=== PATIENT | female | born 1985 ===

== ENCOUNTER 2017-03-11 22:26 | Emergency (ER) | payer SELFPAY ==
[2017-03-11 22:52] VITALS: BP 122/74
--- NOTE | 2017-03-11 23:29 | ED PDOC ---
Arrival/HPI - General Chief Complaint: Finger,Hand,&Wrist Time Seen by Provider: 03/11/17 23:16 Historian: Patient - History of Present Illness Narrative History of Present Illness (Text): 03/11/17 23:17 31 y/o female, pmh including ovarian cyst/pylonephritis, nkda, c/o rt. hand palmar pain s/p slipped and landed on the palmar tonight while moving the furniture. Aching pain, aggravated by movement, no wrist pain, no numbness or tingling, no head or neck injury, no dizziness, no other medical or psychological complaints. Past Medical History - Provider Review Nursing Documentation Reviewed: Yes - Cardiac Hx Cardiac Disorders: No - Pulmonary Hx Respiratory Disorders: No - Neurological Hx Neurological Disorder: No - HEENT Hx HEENT Disorder: No - Renal Hx Renal Disorder: Yes Hx Kidney Stones: Yes - Endocrine/Metabolic Hx Endocrine Disorders: No - Hematological/Oncological Hx Blood Disorders: No - Integumentary Hx Dermatological Disorder: No - Musculoskeletal/Rheumatological Hx Musculoskeletal Disorders: No - Gastrointestinal Hx Gastrointestinal Disorders: No - Genitourinary/Gynecological Hx Genitourinary Disorders: Yes Hx Urinary Tract Infection: Yes Other/Comment: Ovarian cyst - Psychiatric Hx Psychophysiologic Disorder: No Hx Substance Use: No - Anesthesia Hx Anesthesia: No Family/Social History - Physician Review Nursing Documentation Reviewed: Yes Family/Social History: Unknown Family HX Smoking Status: Never Smoked Hx Alcohol Use: Yes Hx Substance Use: No Allergies/Home Meds Allergies/Adverse Reactions: Allergies tree nut Allergy (Verified 03/13/16 22:28) RASH fruit Allergy (Uncoded 03/13/16 22:28) RASH Home Medications: Home Meds Medication Instructions Recorded Confirmed Pnv No.95/Ferrous Fum/Folic AC 1 tab PO DAILY 10/22/16 10/22/16 [ Vitamin Tablet] Review of Systems - Physician Review All systems were reviewed & negative as marked: Yes - Review of Systems Constitutional: absent: Fatigue, Fevers Eyes: absent: Vision Changes ENT: absent: Hearing Changes Respiratory: absent: SOB, Cough Cardiovascular: absent: Chest Pain Gastrointestinal: absent: Abdominal Pain, Diarrhea, Nausea, Vomiting Musculoskeletal: Arthralgias, Myalgias. absent: Back Pain, Neck Pain, Joint Swelling Skin: absent: Rash, Pruritis, Skin Lesions Psychiatric: absent: Anxiety, Depression, Suicidal Ideation Physical Exam Vital Signs Reviewed: Yes Vital Signs Temp Pulse Resp BP Pulse Ox 03/12/17 00:55 98.0 F 90 16 99 03/12/17 00:54 98.0 F 90 16 03/11/17 22:47 98.1 F 66 18 122/74 98 Temperature: Afebrile Blood Pressure: Normal Pulse: Regular Respiratory Rate: Normal Appearance: Positive for: Well-Appearing, Non-Toxic, Comfortable Pain Distress: Mild Mental Status: Positive for: Alert and Oriented X 3 - Systems Exam Head: Present: Atraumatic, Normocephalic Pupils: Present: PERRL Extroacular Muscles: Present: EOMI Conjunctiva: Present: Normal Mouth: Present: Moist Mucous Membranes Neck: Present: Normal Range of Motion Respiratory/Chest: Present: Clear to Auscultation, Good Air Exchange. No: Respiratory Distress, Accessory Muscle Use Cardiovascular: Present: Regular Rate and Rhythm, Normal S1, S2. No: Murmurs Abdomen: Present: Normal Bowel Sounds. No: Tenderness, Distention, Peritoneal Signs Back: Present: Normal Inspection Upper Extremity: Present: Normal Inspection, Normal ROM, NORMAL PULSES, Neurovascularly Intact, Capillary Refill < 2s, Other (Rt. hand/wrist: +ttp on the base of the 2nd/3rd base metacarpal region with no swelling, no scaphoid or wrist tenderness, skin intact, FROM without limitation, sensation intact, motor 5/5, +radial pulse, capillary refill< 2 seconds, neurovascular intact. ). No: Cyanosis, Edema, Deformity Lower Extremity: Present: Normal Inspection. No: Edema Neurological: Present: GCS=15, Speech Normal, Motor Func Grossly Intact, Gait Normal, Memory Normal Skin: Present: Warm, Dry, Normal Color. No: Rashes Psychiatric: Present: Alert, Oriented x 3, Normal Insight, Normal Concentration Medical Decision Making ED Course and Treatment: 03/11/17 23:29 -rt. hand xray -motrin -observe and reassess 03/11/17 23:58 -xray show no obvious fracture or dislocation, radial gutter splint applied by me with neurovascular intact, sling applied. -Discharge home with motrin, radial gutter splint, follow up with your own pmd and orthopedic/hand specialist within 2 days, return to the ER for any new or worsening signs or symptoms. - RAD Interpretation Radiology Orders: 03/11/17 23:16 HAND RIGHT 3 VIEWS [RAD] Stat no fracture. 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 Disposition/Present on Arrival - Present on Arrival Any Indicators Present on Arrival: No History of DVT/PE: No History of Uncontrolled Diabetes: No Urinary Catheter: No History of Decub. Ulcer: No History Surgical Site Infection Following: None - Disposition Have Diagnosis and Disposition been Completed?: Yes Diagnosis: Hand injury, Hand pain Disposition: HOME/ ROUTINE Disposition Time: 23:29 Patient Plan: Discharge Condition: IMPROVED Additional Instructions: Discharge home with motrin, radial gutter splint, follow up with your own pmd and orthopedic/hand specialist within 2 days, return to the ER for any new or worsening signs or symptoms. Prescriptions: Ibuprofen [Motrin] 600 mg PO QID PRN #24 tab PRN Reason: Other Referrals: PCP,NO [Primary Care Provider] - Follow up with primary Leighton Griggs MD [Staff Provider] - Follow up with primary Chet Donnelly MD [Staff Provider] - Follow up with primary Forms: WORK NOTE
[2017-03-12 00:55] VITALS: PULSE 90; RESP 16; TEMP 98; O2SAT 99
--- NOTE | 2017-03-12 08:07 | RAD ---
PROCEDURE: Right Hand Radiographs. HISTORY: rt. hand 2nd/3rd base metacarpal pain COMPARISON: None. FINDINGS: BONES: No fracture. No erosions. JOINTS: The 2nd and 3rd proximal interphalangeal joints and 5th R at held in slight flexion. No gross erosions are prominent osteophytes here noted. And spaces are probably minimally decreased. At these levels there is soft tissue mild swelling suggested SOFT TISSUES: As above OTHER FINDINGS: None. IMPRESSION: Oft tissue swelling 2nd and 3rd and 5th proximal interphalangeal joint levels. Findings probably relating to mild degenerative changes no erosions are prominent osteophytes noted. If needed, consider rheumatologic lab testing correlation
== END 2017-03-12 00:55 | disposition home or self-care (01) ==
LOC: ED 22:26
DX: S69.91XA Unspecified injury of right wrist, hand and finger(s), initial encounter (principal); W01.0XXA Fall on same level from slipping, tripping and stumbling without subsequent striking against object, initial encounter; Y93.E9 Activity, other interior property and clothing maintenance; Y92.89 Other specified places as the place of occurrence of the external cause

== ENCOUNTER 2017-05-21 18:08 | Emergency (ER) | payer MEDICAID, OTHER ==
[2017-05-21 18:14] VITALS: BMI 27.3
[2017-05-21 18:28] VITALS: TEMP 98.1
--- NOTE | 2017-05-21 18:50 | ED PDOC ---
Arrival/HPI - General Chief Complaint: Abdominal Pain Time Seen by Provider: 05/21/17 18:34 Historian: Patient - History of Present Illness Narrative History of Present Illness (Text): 05/21/17 18:44 This 31 yo female presents to this ED c/o epigastric pain x 2 weeks. Patient stated she felt nauseous x 2 days ago. Today, patient continues with epigastric pain, but she does not feels nauseous. Denies sob, cp, urinary symptoms, calderon, fever, recent travel, sick contact, or abnormal gait. Patient appears well, in no acute distress. Patient has been texting while waiting in her ER room. Time/Duration: Other (see hpi) Context: Home Past Medical History - Provider Review Nursing Documentation Reviewed: Yes - Infectious Disease Hx of Infectious Diseases: None - Cardiac Hx Cardiac Disorders: No - Pulmonary Hx Respiratory Disorders: No - Neurological Hx Neurological Disorder: No - HEENT Hx HEENT Disorder: No - Renal Hx Renal Disorder: Yes Hx Kidney Stones: Yes - Endocrine/Metabolic Hx Endocrine Disorders: No - Hematological/Oncological Hx Blood Disorders: No - Integumentary Hx Dermatological Disorder: No - Musculoskeletal/Rheumatological Hx Musculoskeletal Disorders: No - Gastrointestinal Hx Gastrointestinal Disorders: No - Genitourinary/Gynecological Hx Genitourinary Disorders: Yes Hx Urinary Tract Infection: Yes Other/Comment: Ovarian cyst. 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 - Psychiatric Hx Psychophysiologic Disorder: No Hx Substance Use: No - Anesthesia Hx Anesthesia: No Family/Social History - Physician Review Nursing Documentation Reviewed: Yes Family/Social History: No Known Family HX Smoking Status: Light Smoker < 10 Cigarettes Daily Hx Alcohol Use: Yes Frequency of alcohol use: Socially Hx Substance Use: No Allergies/Home Meds Allergies/Adverse Reactions: Allergies tree nut Allergy (Verified 05/21/17 18:14) RASH fruit Allergy (Uncoded 05/21/17 18:14) RASH Home Medications: Home Meds Medication Instructions Recorded Confirmed Pnv No.95/Ferrous Fum/Folic AC 1 tab PO DAILY 10/22/16 05/21/17 [ Vitamin Tablet] Review of Systems - Review of Systems Constitutional: Normal. absent: Fatigue, Weight Change, Fevers, Night Sweats Eyes: Normal ENT: Normal Respiratory: Normal. absent: SOB, Cough, Wheezing Cardiovascular: Normal Gastrointestinal: Abdominal Pain, Nausea. absent: Constipation, Diarrhea, Vomiting Genitourinary Female: Normal. absent: Dysuria, Frequency, Hematuria, Vaginal Bleeding, Vaginal Discharge Musculoskeletal: Normal Skin: Normal Neurological: Normal. absent: Headache, Dizziness, Focal Weakness Endocrine: Normal Hemo/Lymphatic: Normal Psychiatric: Normal Physical Exam Vital Signs Temp Pulse Resp BP Pulse Ox 05/21/17 18:28 98.1 F 05/21/17 18:16 76 18 111/71 98 Temperature: Afebrile Blood Pressure: Normal Pulse: Regular Respiratory Rate: Normal Appearance: Positive for: Well-Appearing, Non-Toxic, Comfortable Pain Distress: None Mental Status: Positive for: Alert and Oriented X 3 - Systems Exam Head: Present: Atraumatic, Normocephalic Pupils: Present: PERRL Extroacular Muscles: Present: EOMI Conjunctiva: Present: Normal Mouth: Present: Moist Mucous Membranes Neck: Present: Normal Range of Motion Respiratory/Chest: Present: Clear to Auscultation, Good Air Exchange. No: Respiratory Distress, Accessory Muscle Use Cardiovascular: Present: Regular Rate and Rhythm, Normal S1, S2. No: Murmurs Abdomen: Present: Normal Bowel Sounds, Other (abdomen is soft, nt/nd). No: Tenderness, Distention, Peritoneal Signs, Rebound, Guarding, McBurney's Point Tender, Rovsing's Sign Present, Hernias Back: Present: Normal Inspection. No: CVA Tenderness Upper Extremity: Present: Normal Inspection, Normal ROM. No: Cyanosis, Edema Lower Extremity: Present: Normal Inspection, Normal ROM. No: Edema Neurological: Present: GCS=15, CN II-XII Intact, Speech Normal, Motor Func Grossly Intact, Normal Sensory Function, Normal Cerebellar Funct, Gait Normal Skin: Present: Warm, Dry, Normal Color. No: Rashes Psychiatric: Present: Alert, Oriented x 3, Normal Insight, Normal Concentration Medical Decision Making ED Course and Treatment: 05/21/17 19:56 Re-evaluation. Patient feels better. Discussed results and plan with patient who expresses understanding. All questions answered and there is agreement with the plan to discharge home with instructions. Patient stable for discharge. Return if symptoms persist or worsen. Abdomen is soft, nt/nd. Vital signs are stable. Labs unremarkable. Patient was recommended to f/u pmd in 1-2 days. Take medication as instructed. To return to emergency if symptoms worsen. Re-evaluation Time: 19:57 Reassessment Condition: Re-examined, Improved - Lab Interpretations Lab Results: 05/21/17 19:15 05/21/17 19:15 Lab Results 05/21/17 19:15: Sodium 139, Potassium 4.3, Chloride 104, Carbon Dioxide 24, Anion Gap 15, BUN 10, Creatinine 0.6, Est GFR ( Amer) > 60, Est GFR (Non- Af Amer) > 60, Random Glucose 74, Calcium 9.1, Total Bilirubin 0.5, AST 23, ALT 20, Alkaline Phosphatase 39, Total Protein 7.4, Albumin 4.3, Globulin 3.1, Albumin/Globulin Ratio 1.4, Lipase 110 05/21/17 19:15: WBC 9.4, RBC 4.36, Hgb 13.6, Hct 40.3, MCV 92.4, MCH 31.2, MCHC 33.7, RDW 12.3, Plt Count 430, MPV 9.2, Gran % 64.0, Lymph % (Auto) 28.4, Cherry % (Auto) 5.6, Eos % (Auto) 1.5, Baso % (Auto) 0.5, Gran # 6.00, Lymph # 2.7, Cherry # 0.5, Eos # 0.1, Baso # 0.05 05/21/17 19:02: Urine Color Yellow, Urine Appearance Clear, Urine pH 6.0, Ur Specific [place] 1.020, Urine Protein Negative, Urine Glucose (UA) Negative, Urine Ketones Negative, Urine Blood Trace-lysed H, Urine Nitrate Negative, Urine Bilirubin Negative, Urine Urobilinogen 0.2, Ur Leukocyte Esterase Negative , Urine RBC 0 - 2, Urine WBC 0 - 2, Ur Epithelial Cells 1 - 3, Urine Bacteria Few, Urine HCG, Qual Negative I have reviewed the lab results: Yes Interpretation: No clinic. lab abnormalty - Medication Orders Current Medication Orders: Discontinued Medications Sodium Chloride (Sodium Chloride 0.9%) 1,000 mls @ 999 mls/hr IV .Q1H1M STA Stop: 05/21/17 19:55 Last Admin: 05/21/17 19:21 Dose: 999 mls/hr Famotidine (Pepcid 20mg/50ml Premix) 20 mg in 50 mls @ 100 mls/hr IVPB STAT STA Stop: 05/21/17 19:25 Last Admin: 08/16/17 19:21 Dose: 100 mls/hr Ondansetron HCl (Zofran Inj) 4 mg IVP STAT STA Stop: 05/21/17 18:57 Last Admin: 05/21/17 19:21 Dose: Not Given Non-Admin Reason: Patient Refused Disposition/Present on Arrival - Present on Arrival Any Indicators Present on Arrival: No History of DVT/PE: No History of Uncontrolled Diabetes: No Urinary Catheter: No History of Decub. Ulcer: No History Surgical Site Infection Following: None - Disposition Have Diagnosis and Disposition been Completed?: Yes Diagnosis: Nonspecific abdominal pain Disposition: HOME/ ROUTINE Disposition Time: 19:58 Patient Plan: Discharge Patient Problems: Current Active Problems Problem Status Onset Nonspecific abdominal pain Acute Condition: GOOD Discharge Instructions (ExitCare): Abdominal Pain (ED) Additional Instructions: Call private doctor for follow up visit in 1-2 days. Take medication as instructed. Return to emergency if symptoms worsen. Prescriptions: Famotidine [Pepcid] 40 mg PO DAILY #20 tablet Sucralfate [Carafate] 1 gm PO DAILY #20 tab Referrals: Lauren Donohue, [Primary Care Provider] - Follow up with primary [facility] [Outside] - Follow up with primary [facility] [Outside] - Follow up with primary Forms: [employer] (Salvadorean)
[2017-05-21] MEDS ORDERED: Sodium Chloride 0.9% 1,000 ML IV STA (18:55)
[2017-05-21] MEDS ORDERED: Famotidine 20mg/50ml 20 MG/50 ML BAG IVPB STA (18:56)
[2017-05-21 19:38] LABS: BASO # 0.05 K/mm3 (0.0-2.0); BASO % 0.5 % (0.0-3.0); EOS # 0.1 (0.0-0.7); EOS % 1.5 % (1.5-5.0); HEMOGLOBIN 13.6 g/dL (12.0-16.0); LYMPH # 2.7 (1.2-3.4); LYMPH % 28.4 % (22.0-35.0); MEAN CELL VOLUME 92.4 fl (80.0-105.0); MEAN CORPUSCULAR HEMOGLOBIN 31.2 pg (25.0-35.0); MEAN CORPUSCULAR HGB CONC 33.7 g/dl (31.0-37.0); MEAN PLATELET VOLUME 9.2 fl (7.0-11.0); MONO # 0.5 (0.1-0.6); MONO % 5.6 % (1.0-6.0); PLATELET COUNT 430 10^3/uL (120.0-450.0); RBC 4.36 10^6/uL (3.5-6.1); RED CELL DISTRIBUTION WIDTH 12.3 % (11.5-14.5); WHITE BLOOD COUNT 9.4 10^3/ul (4.5-11.0)
[2017-05-21 19:42] LABS: URINE BILIRUBIN NEGATIVE (NEGATIVE); URINE BLOOD TRACE-LYSED (NEGATIVE); URINE GLUCOSE (UA) NEGATIVE (NEGATIVE); URINE LEUKOCYTE ESTERASE NEGATIVE Leu/uL (NEGATIVE); URINE NITRATE NEGATIVE (NEGATIVE); URINE PROTEIN NEGATIVE mg/dL (<30 mg/dL); URINE UROBILINOGEN 0.2 E.U./dL (<1 E.U./dL)
[2017-05-21 19:44] LABS: ALB/GLOB RATIO 1.4 (1.1-1.8); ALBUMIN 4.3 g/dL (3.0-4.8); ALT/SGPT 20 U/L (7-56); AST/SGOT 23 U/L (15-39); BLOOD UREA NITROGEN 10 mg/dL (7-21); CALCIUM 9.1 mg/dL (8.4-10.5); GFR AFRICAN-AMERICAN > 60; GFR NON-AFRICAN AMERICAN > 60; LIPASE 110 U/L (23-300)
[2017-05-21 19:47] LABS: URINE APPEARANCE CLEAR (CLEAR); URINE COLOR YELLOW (YELLOW)
[2017-05-21 19:51] LABS: HCG,QUALITATIVE URINE NEGATIVE (NEGATIVE); URINE BACTERIA FEW (NEG); URINE RBC 0 - 2 /hpf (0-2); URINE WBC 0 - 2 /hpf (0-6)
[2017-05-21] MEDS ORDERED: cefTRIAXone (Rocephin) 250 mg Inj IM STA (20:26)
[2017-05-21 21:23] VITALS: BP 114/87; PULSE 72; RESP 16; O2SAT 100
== END 2017-05-21 20:52 | disposition home or self-care (01) ==
LOC: ED 18:08
DX: R10.9 Unspecified abdominal pain (principal)
CPT/HCPCS: 80053; 81001; 83690; 84703; 85025; 87491; 87591; 96372; 99284; J0696; J7040

== ENCOUNTER 2017-09-24 18:52 | Emergency (ER) | payer MEDICAID, OTHER ==
[2017-09-24 18:52] VITALS: BMI 27.3
[2017-09-24 19:25] VITALS: BP 117/75; PULSE 102; RESP 17; TEMP 100; O2SAT 98
[2017-09-24] MEDS ORDERED: Sodium Chloride 0.9% 1,000 ML IV STA (19:34)
--- NOTE | 2017-09-24 20:05 | ED PDOC ---
Arrival/HPI - General Historian: Patient - General Chief Complaint: Flu-like Symptoms Time Seen by Provider: 09/24/17 19:34 - History of Present Illness Narrative History of Present Illness (Text): 09/24/17 20:00 31yo female with no Past medical history who present with 10days history of nausea, vomiting, diarrhea, productive cough, generalized body ache and weakness. Reports nonbloody vomiting x 3today and multiple episodes of diarrhea. Notes that she saw her PMD yesterday and was referred to lab christy for lab test. States she took Aleve yesterday. Denies sore throat, sick contact, urinary symptoms, chest pain, any other complaint. (Suresh Manzo A) Past Medical History - Provider Review Nursing Documentation Reviewed: Yes - Infectious Disease Hx of Infectious Diseases: None - Cardiac Hx Cardiac Disorders: No - Pulmonary Hx Respiratory Disorders: No - Neurological Hx Neurological Disorder: No - HEENT Hx HEENT Disorder: No - Renal Hx Renal Disorder: Yes Hx Kidney Stones: Yes - Endocrine/Metabolic Hx Endocrine Disorders: No - Hematological/Oncological Hx Blood Disorders: No - Integumentary Hx Dermatological Disorder: No - Musculoskeletal/Rheumatological Hx Musculoskeletal Disorders: No - Gastrointestinal Hx Gastrointestinal Disorders: No - Genitourinary/Gynecological Hx Genitourinary Disorders: Yes Hx Urinary Tract Infection: Yes Other/Comment: Ovarian cyst. 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 - Psychiatric Hx Psychophysiologic Disorder: No Hx Substance Use: No - Anesthesia Hx Anesthesia: No Family/Social History - Physician Review Nursing Documentation Reviewed: Yes Family/Social History: Unknown Family HX Smoking Status: Light Smoker < 10 Cigarettes Daily Hx Alcohol Use: Yes Hx Substance Use: No Allergies/Home Meds Allergies/Adverse Reactions: Allergies tree nut Allergy (Verified 09/24/17 19:19) RASH fruit Allergy (Uncoded 09/24/17 19:19) RASH Review of Systems - Physician Review All systems were reviewed & negative as marked: Yes - Review of Systems Constitutional: Fatigue, Fevers Eyes: Normal ENT: Normal Respiratory: Cough Cardiovascular: Normal Gastrointestinal: Abdominal Pain, Diarrhea, Nausea, Vomiting. absent: Constipation, Hematochezia, Hematemesis Genitourinary Female: Normal Musculoskeletal: Normal Skin: Normal Neurological: Normal Endocrine: Normal Hemo/Lymphatic: Normal Psychiatric: Normal Physical Exam Vital Signs Reviewed: Yes Temperature: Febrile Blood Pressure: Normal Pulse: Tachycardic Respiratory Rate: Normal Appearance: Positive for: Well-Appearing, Non-Toxic, Comfortable Pain Distress: None Mental Status: Positive for: Alert and Oriented X 3 - Systems Exam Head: Present: Atraumatic, Normocephalic Pupils: Present: PERRL Extroacular Muscles: Present: EOMI Conjunctiva: Present: Normal Mouth: Present: Moist Mucous Membranes Neck: Present: Normal Range of Motion Respiratory/Chest: Present: Clear to Auscultation, Good Air Exchange. No: Respiratory Distress, Accessory Muscle Use, Wheezes, Decreased Breath Sounds, Rales, Retracting, Rhonchi Cardiovascular: Present: Regular Rate and Rhythm, Normal S1, S2. No: Murmurs Abdomen: Present: Normal Bowel Sounds, Other (soft). No: Tenderness, Distention , Peritoneal Signs, Rebound, Guarding, McBurney's Point Tender, Rovsing's Sign Present Back: Present: Normal Inspection Upper Extremity: Present: Normal Inspection. No: Cyanosis, Edema Lower Extremity: Present: Normal Inspection. No: Edema Neurological: Present: GCS=15, CN II-XII Intact, Speech Normal Skin: Present: Warm, Dry, Normal Color. No: Rashes Psychiatric: Present: Alert, Oriented x 3, Normal Insight, Normal Concentration Vital Signs Temp Pulse Resp BP Pulse Ox 09/24/17 19:20 100.0 F H 102 H 17 117/75 98 Medical Decision Making ED Course and Treatment: 09/24/17 22:31 CT Abdomen and Pelvis shows: Lower thorax: Minimal atelectasis/scarring. Mild patchy groundglass/airspace disease left lower lobe. Minimal patchy groundglass/airspace disease right middle, lower lobes. ABDOMEN: Liver: Unremarkable. No mass. Gallbladder and bile ducts: No calcified stones. No ductal dilation. Pancreas: No ductal dilation. No mass. Spleen: No splenomegaly. Adrenals: No mass. Kidneys and ureters: No mass. No hydronephrosis. Stomach and bowel: Fluid within small bowel. Fluid/loose stool within colon. No definite mural thickening. No obstruction. Appendix: Normal caliber. No definite inflammation. PELVIS: Bladder: Unremarkable. Reproductive: 4.0 x 3.9 x 3.1 cm hypodense lesion within LEFT adnexal region. 0.8 x 1.1 x 1.5 cm fat containing lesion versus volume averaging within right adnexal region. ABDOMEN and PELVIS: Intraperitoneal space: No significant fluid collection. No free air. Bones/joints: No acute fracture. Soft tissues: Tiny umbilical hernia containing fat. Probable tiny ventral hernia containing fat. Vasculature: Mildly prominent vessels within left hemipelvis. No aneurysm. Lymph nodes: No pathologically enlarged lymph nodes. IMPRESSION: 1. Probable multifocal pneumonia. Followup to resolution to exclude underlying pathology. 2. Fluid/loose stool within bowel may suggest diarrhea illness. 3. Probable LEFT adnexal cyst. Consider ultrasound. 4. Small ovarian dermoid vs volume averaging. 5. Incidental/non-acute findings are described above. (Vimal Yip) 09/24/17 21:27 P present for stated history. She was febrile and Tylenol was given. Lab was reviewed and leukocytosis was noted. abdominal/Pelvic CT was ordered and pending chest xray ordered and pending. Case was DW Dr. Gibbs when she was in Emergency department and she wants pt admitted to the hospitalist if admission needed. Case was endorsed to Dr. Yip to f[facility] - Lab Interpretations Microbiology Results: Microbiology Results 09/24/17 21:10 Urine,Clean Catch Urine Culture - Final No Growth (<1,000 CFU/ML) Lab Results: 09/24/17 20:02 09/24/17 20:02 Lab Results 09/24/17 21:56: Urine Color Yellow, Urine Appearance Sl cloudy, Urine pH 7.0, Ur Specific [place] 1.010, Urine Protein Trace H, Urine Glucose (UA) Negative, Urine Ketones 15 H, Urine Blood Moderate H, Urine Nitrate Negative, Urine Bilirubin Negative, Urine Urobilinogen 0.2, Ur Leukocyte Esterase Negative, Urine RBC 10 - 15, Urine WBC 5 - 10, Ur Epithelial Cells 6 - 8, Urine Bacteria Many 09/24/17 20:02: Beta HCG, Quant < 2.39 09/24/17 20:02: Sodium 136, Potassium 3.2 L, Chloride 101, Carbon Dioxide 22, Anion Gap 16, BUN 5 L, Creatinine 0.7, Est GFR ( Amer) > 60, Est GFR (Non -Af Amer) > 60, Random Glucose 112 H, Calcium 9.2, Total Bilirubin 0.5, AST 36, ALT 38, Alkaline Phosphatase 70, Total Protein 8.9 H, Albumin 4.5, Globulin 4.5 , Albumin/Globulin Ratio 1.0 L, Lipase 59 09/24/17 20:02: PT 14.3 H, INR 1.30 H, APTT 32.0 09/24/17 20:02: WBC 17.2 H D, RBC 4.66, Hgb 14.5, Hct 42.2, MCV 90.6, MCH 31.1, MCHC 34.4, RDW 12.3, Plt Count 521 H, MPV 9.1, Gran % 86.7 H, Lymph % (Auto) 9.3 L, [place] % (Auto) 3.8, Eos % (Auto) 0.0 L, Baso % (Auto) 0.2, Gran # 14.91 H , Lymph # 1.6, Routt # 0.7 H, Eos # 0.0, Baso # 0.03 09/24/17 19:28: Influenza Typ A,B (EIA) Negative for flu a/b - RAD Interpretation Radiology Orders: 09/24/17 20:22 ABD & PELVIS IV CONTRAST ONLY [CT] Stat 09/24/17 20:43 CHEST TWO VIEWS (PA/LAT) [RAD] Stat - Medication Orders Current Medication Orders: Discontinued Medications Acetaminophen (Tylenol 325mg Tab) 650 mg PO STAT STA Stop: 09/24/17 20:00 Last Admin: 09/24/17 21:00 Dose: 650 mg MAR Pain/Vitals Document 09/24/17 21:00 AD (Rec: 09/24/17 21:00 [id number] Presence of Pain Presence of Pain Yes Location Intensity 10 Pain Behavior Moaning Crying Facial Grimacing Famotidine (Pepcid) 20 mg IVP STAT STA Stop: 09/24/17 19:35 Last Admin: 09/24/17 20:02 Dose: 20 mg IVP Administration Document 09/24/17 20:02 AD (Rec: 09/24/17 20:02 [id number] Charges for Administration # of IVP Administrations 1 Sodium Chloride (Sodium Chloride 0.9%) 1,000 mls @ 1,000 mls/hr IV .Q1H STA Stop: 09/24/17 20:33 Last Admin: 09/24/17 20:02 Dose: 1,000 mls/hr eMAR Start Stop Document 09/24/17 20:02 AD (Rec: 09/24/17 20:02 AD [id number]) Intravenous Solution Start Date 09/24/17 Start Time 20:02 Levofloxacin/Dextrose (Levaquin 750mg) 750 mg in 150 mls @ 100 mls/hr IVPB STAT STA PRN Reason: Protocol Stop: 09/25/17 00:49 Last Admin: 09/24/17 23:51 Dose: 100 mls/hr eMAR Start Stop Document 09/24/17 23:51 AD (Rec: 09/24/17 23:52 AD [id number]) Intravenous Solution Start Date 09/24/17 Start Time 23:52 Ibuprofen (Motrin Tab) 400 mg PO ONCE STA Stop: 09/25/17 00:08 Last Admin: 09/25/17 00:34 Dose: 400 mg MAR Pain/Vitals Document 09/25/17 00:34 AD (Rec: 09/25/17 00:34 AD [id number]) Pain Reassessment Is This A Pain ReAssessment? No Presence of Pain Presence of Pain Yes Pain Scale Used Pain Scale Used Numeric Location Pain Location Body Precipitate Washer Description Throbbing Intensity 8 Scale Used Numeric Pain Behavior Facial Grimacing Ketorolac Tromethamine (Toradol) 30 mg IVP STAT STA Stop: 09/24/17 19:35 Last Admin: 09/24/17 21:00 Dose: 30 mg MAR Pain Assessment Document 09/24/17 21:00 AD (Rec: 09/24/17 21:00 AD [id number]) Pain Reassessment Is this a pain reassessment? No Presence of Pain Presence of Pain Yes Pain Scale Used Pain Scale Used Numeric Description Intensity of Pain at present 10 IVP Administration Document 09/24/17 21:00 AD (Rec: 09/24/17 21:00 AD [id number]) Charges for Administration # of IVP Administrations 1 Ondansetron HCl (Zofran Inj) 4 mg IVP STAT STA Stop: 09/24/17 19:35 Last Admin: 09/24/17 20:02 Dose: 4 mg IVP Administration Document 09/24/17 20:02 AD (Rec: 09/24/17 20:02 AD [id number]) Charges for Administration # of IVP Administrations 1 Potassium Chloride (Potassium Chloride Oral Soln) 40 meq PO STAT STA Stop: 09/24/17 20:23 Last Admin: 09/24/17 21:00 Dose: 40 meq Disposition/Present on Arrival - Present on Arrival History of DVT/PE: No History of Uncontrolled Diabetes: No Urinary Catheter: No History of Decub. Ulcer: No History Surgical Site Infection Following: None - Disposition Disposition Time: 22:00 Patient Plan: Discharge - Disposition Diagnosis: Influenza-like symptoms, Pneumonia Disposition: HOME/ ROUTINE Condition: STABLE Discharge Instructions (ExitCare): Bacterial Pneumonia (ED) Prescriptions: levoFLOXacin [Levaquin] 500 mg PO DAILY #10 tab Ondansetron [Zofran Odt] 8 mg PO TID PRN #10 odt PRN Reason: Nausea/Vomiting Referrals: Leslee Abrams MD [Primary Care Provider] - Follow up with primary Forms: [employer] (Kyrgyz)
[2017-09-24 20:12] LABS: BASO # 0.03 K/mm3 (0.0-2.0); BASO % 0.2 % (0.0-3.0); GRAN # 14.91 (1.4-6.5); GRAN % 86.7 % (50.0-68.0); HEMATOCRIT 42.2 % (36.0-48.0); LYMPH # 1.6 (1.2-3.4); LYMPH % 9.3 % (22.0-35.0); MEAN CELL VOLUME 90.6 fl (80.0-105.0); MEAN CORPUSCULAR HEMOGLOBIN 31.1 pg (25.0-35.0); MEAN CORPUSCULAR HGB CONC 34.4 g/dl (31.0-37.0); MEAN PLATELET VOLUME 9.1 fl (7.0-11.0); MONO # 0.7 (0.1-0.6); MONO % 3.8 % (1.0-6.0); RED CELL DISTRIBUTION WIDTH 12.3 % (11.5-14.5); WHITE BLOOD COUNT 17.2 10^3/ul (4.5-11.0)
[2017-09-24 20:19] LABS: ALKALINE PHOSPHATASE 70 U/L (38-126); ALT/SGPT 38 U/L (7-56); AST/SGOT 36 U/L (14-36); BILIRUBIN,TOTAL 0.5 mg/dL (0.2-1.3); BLOOD UREA NITROGEN 5 mg/dL (7-21); CALCIUM 9.2 mg/dL (8.4-10.5); CARBON DIOXIDE 22 mmol/L (21-33); CHLORIDE 101 mmol/L (98-107); GFR AFRICAN-AMERICAN > 60; GLUCOSE,RANDOM 112 mg/dL (70-110); INR 1.3 (0.93-1.08); LIPASE 59 U/L (23-300); POTASSIUM 3.2 mmol/L (3.6-5.0); SODIUM 136 mmol/L (132-148); TOTAL PROTEIN 8.9 g/dL (5.8-8.3)
[2017-09-24] MEDS ORDERED: Potassium Chloride 40 mEq/30 ml LIQ UD PO STA (20:22)
[2017-09-24] MEDS ORDERED: Iohexol 350 MG/100 ML VIAL ONE (20:37)
[2017-09-24 22:10] LABS: URINE BILIRUBIN NEGATIVE (NEGATIVE); URINE BLOOD MODERATE (NEGATIVE); URINE GLUCOSE (UA) NEGATIVE (NEGATIVE); URINE KETONE 15 mg/dL (NEGATIVE); URINE LEUKOCYTE ESTERASE NEGATIVE Leu/uL (NEGATIVE); URINE PROTEIN TRACE mg/dL (<30 mg/dL); URINE UROBILINOGEN 0.2 E.U./dL (<1 E.U./dL)
[2017-09-24 22:21] LABS: URINE APPEARANCE SL CLOUDY (CLEAR); URINE COLOR YELLOW (YELLOW)
--- NOTE | 2017-09-24 22:31 | CT ---
EXAM: CT Abdomen and Pelvis With Intravenous Contrast CLINICAL HISTORY: 31 years old, female; Signs and symptoms; Vomiting; Additional info: Abdominal pain TECHNIQUE: Axial computed tomography images of the abdomen and pelvis with intravenous contrast. All CT scans at this facility use one or more dose reduction techniques, viz.: automated exposure control; ma/kV adjustment per patient size (including targeted exams where dose is matched to indication; i.e. head); or iterative reconstruction technique. Coronal and sagittal reformatted images were created and reviewed. CONTRAST: 95 mL of OMNI 350 administered intravenously. COMPARISON: No relevant prior studies available. FINDINGS: Lower thorax: Minimal atelectasis/scarring. Mild patchy groundglass/airspace disease left lower lobe. Minimal patchy groundglass/airspace disease right middle, lower lobes. ABDOMEN: Liver: Unremarkable. No mass. Gallbladder and bile ducts: No calcified stones. No ductal dilation. Pancreas: No ductal dilation. No mass. Spleen: No splenomegaly. Adrenals: No mass. Kidneys and ureters: No mass. No hydronephrosis. Stomach and bowel: Fluid within small bowel. Fluid/loose stool within colon. No definite mural thickening. No obstruction. Appendix: Normal caliber. No definite inflammation. PELVIS: Bladder: Unremarkable. Reproductive: 4.0 x 3.9 x 3.1 cm hypodense lesion within LEFT adnexal region. 0.8 x 1.1 x 1.5 cm fat containing lesion versus volume averaging within right adnexal region. ABDOMEN and PELVIS: Intraperitoneal space: No significant fluid collection. No free air. Bones/joints: No acute fracture. Soft tissues: Tiny umbilical hernia containing fat. Probable tiny ventral hernia containing fat. Vasculature: Mildly prominent vessels within left hemipelvis. No aneurysm. Lymph nodes: No pathologically enlarged lymph nodes. IMPRESSION: 1. Probable multifocal pneumonia. Followup to resolution to exclude underlying pathology. 2. Fluid/loose stool within bowel may suggest diarrhea illness. 3. Probable LEFT adnexal cyst. Consider ultrasound. 4. Small ovarian dermoid vs volume averaging. 5. Incidental/non-acute findings are described above.
[2017-09-24 22:34] LABS: URINE BACTERIA MANY (NEG)
[2017-09-24] MEDS ORDERED: levoFLOXacin 750 mg in D5W 750 MG/150 ML BAG IVPB STA (23:20)
--- NOTE | 2017-09-25 08:57 | RAD ---
HISTORY: cough COMPARISON: No prior. TECHNIQUE: Chest PA and lateral FINDINGS: LUNGS: The interstitial markings are increased and coarsened particularly in the mid to lower lung zones ; there are a few scattered peribronchial cuffing changes. Rule out sequela of reactive/inflammatory airway disease or interstitial pneumonitis -pneumonia. PLEURA: No significant pleural effusion identified. No pneumothorax apparent. CARDIOVASCULAR: Normal. OSSEOUS STRUCTURES: No significant abnormalities. VISUALIZED UPPER ABDOMEN: Normal. OTHER FINDINGS: None. IMPRESSION: The interstitial markings are increased and coarsened particularly in the mid to lower lung zones ; there are a few scattered peribronchial cuffing changes. Rule out sequela of reactive/inflammatory airway disease or interstitial pneumonitis -pneumonia.
== END 2017-09-25 01:12 | disposition home or self-care (01) ==
LOC: ED 18:52
DX: J18.9 Pneumonia, unspecified organism (principal); J11.1 Influenza due to unidentified influenza virus with other respiratory manifestations; F17.210 Nicotine dependence, cigarettes, uncomplicated
CPT/HCPCS: 71020; 74177; 80053; 81001; 83690; 84702; 85025; 85610; 85730; 87086; 87804; 96374; 96375; 99284; J1885; J2405; J3480; J7040; Q9967

== ENCOUNTER 2017-09-29 01:04 | Observation (INO) | payer OTHER ==
--- NOTE | 2017-09-29 01:23 | ED PDOC ---
Arrival/HPI - General Chief Complaint: Weakness/Neurological Deficit Time Seen by Provider: 09/29/17 01:08 Historian: Patient, Family - History of Present Illness Narrative History of Present Illness (Text): 09/29/17 01:22 31 year old female, who denies any past medical history, presents complaining of worsening cough and chest pain associated with vomiting and generalized weakness. Patient was recently seen and diagnosed for pneumonia, but refused to stay. Patient is currently taking Levaquin with no relief. Patient reports body aches and fever, but denies any chills, shortness of breath, diarrhea, urinary symptoms, back pain, neck pain, headache, dizziness, or any other complaints. PMD: Dr. Abrams Symptom Onset: Gradual Symptom Course: Worsening Activities at Onset: Light Context: Home Past Medical History - Provider Review Nursing Documentation Reviewed: Yes - Infectious Disease Hx of Infectious Diseases: None - Cardiac Hx Cardiac Disorders: No - Pulmonary Hx Respiratory Disorders: No - Neurological Hx Neurological Disorder: No - HEENT Hx HEENT Disorder: No - Renal Hx Renal Disorder: Yes Hx Kidney Stones: Yes - Endocrine/Metabolic Hx Endocrine Disorders: No - Hematological/Oncological Hx Blood Disorders: No - Integumentary Hx Dermatological Disorder: No - Musculoskeletal/Rheumatological Hx Musculoskeletal Disorders: No - Gastrointestinal Hx Gastrointestinal Disorders: No - Genitourinary/Gynecological Hx Genitourinary Disorders: Yes Hx Urinary Tract Infection: Yes Other/Comment: Ovarian cyst. 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 absent: Other (Chills) Respiratory: Cough. absent: SOB Cardiovascular: Chest Pain Gastrointestinal: Vomiting. absent: Diarrhea Genitourinary Female: absent: Dysuria, Frequency, Hematuria Musculoskeletal: Other (body aches) Neurological: absent: Headache, Dizziness Physical Exam Vital Signs Reviewed: Yes Vital Signs Temp Pulse Resp BP Pulse Ox 09/29/17 01:19 98.4 F 60 20 112/77 100 Temperature: Afebrile Blood Pressure: Normal Pulse: Regular Respiratory Rate: Normal Appearance: Positive for: Well-Appearing, Non-Toxic, Comfortable Pain Distress: None Mental Status: Positive for: Alert and Oriented X 3 - Systems Exam Head: Present: Atraumatic, Normocephalic Pupils: Present: PERRL Extroacular Muscles: Present: EOMI Conjunctiva: Present: Normal Mouth: Present: Moist Mucous Membranes Neck: Present: Normal Range of Motion Respiratory/Chest: Present: Rhonchi (Mild Rhonchi bilaterally ) Cardiovascular: Present: Regular Rate and Rhythm, Normal S1, S2. No: Murmurs Abdomen: Present: Normal Bowel Sounds. No: Tenderness, Distention, Peritoneal Signs Back: Present: Normal Inspection Upper Extremity: Present: Normal Inspection. No: Cyanosis, Edema Lower Extremity: Present: Normal Inspection. No: Edema Neurological: Present: GCS=15, CN II-XII Intact, Speech Normal Skin: Present: Warm, Dry, Normal Color. No: Rashes Psychiatric: Present: Alert, Oriented x 3, Normal Insight, Normal Concentration Medical Decision Making ED Course and Treatment: 09/29/17 01:22 Impression: 31 year old female who presents with worsening cough and chest pain associated with generalized weakness and vomiting. Patient was recently diagnosed for pneumonia. Plan: -- VBG Shock Panel -- Labs -- Chest X-ray -- HCG, Qualt Urine -- Urinalysis -- Reassess and disposition Prior Visits: Notes and results from previous visits were reviewed. Patient was last seen in the emergency department on 09/24/17 for nausea, vomiting, diarrhea, productive cough, generalized body ache and weakness for that past 10 days. Progress Notes: 09/29/17 03:08 CXR Impression: As read by ABBE villaseñor. Plan: -- Chest CT -- Toradol -- K-Dur 20 -- Influenza A B Stat 09/29/17 04:59 EXAM: CT Chest Without Intravenous Contrast Dictated and Authenticated by: Vaishali Lynn MD 09/29/2017 4:57 AM IMPRESSION: 1. There is a reticular-nodular infiltrate in the superior segment of left lower lobe and in the left posterior perihilar region seen on image 27 series 2 through image 34 series 2 representing acute pneumonia or aspiration pneumonia. 2. Minimal infiltration in the right lower lobe and subsegmental consolidation in the lateral right middle lobe. Multifocal pneumonia or atelectasis is not excluded. 09/29/17 05:[address] Saeed who is aware and agrees with the plan. Patient will be admitted to [facility] for Pneumonia. - Lab Interpretations Lab Results: 09/29/17 01:40 09/29/17 01:40 Lab Results 09/29/17 03:15: Influenza Typ A,B (EIA) Negative for flu a/b 09/29/17 02:23: Urine HCG, Qual Negative 09/29/17 02:23: Urine Color Yellow, Urine Appearance Sl cloudy, Urine pH 7.0, Ur Specific [place] <= 1.005, Urine Protein Negative, Urine Glucose (UA) Negative, Urine Ketones Negative, Urine Blood Moderate H, Urine Nitrate Negative , Urine Bilirubin Negative, Urine Urobilinogen 0.2, Ur Leukocyte Esterase Negative, Urine RBC 1 - 3, Urine WBC 0 - 2, Ur Epithelial Cells 3 - 4, Urine Bacteria Few 09/29/17 01:40: Beta HCG, Quant < 2.39 09/29/17 01:40: Sodium 137, Chloride 101, Potassium 3.3 L, Carbon Dioxide 24, Anion Gap 16, BUN 9, Creatinine 0.6 L, Est GFR ( Amer) > 60, Est GFR (Non -Af Amer) > 60, Random Glucose 86, Calcium 9.0, Total Bilirubin 0.5, AST 35, ALT 27, Alkaline Phosphatase 57, Total Protein 7.9, Albumin 4.1, Globulin 3.8, Albumin/Globulin Ratio 1.1 09/29/17 01:40: PT 15.3 H, INR 1.39 H, APTT 32.8 09/29/17 01:40: WBC 10.5 D, RBC 4.73, Hgb 14.7, Hct 42.6, MCV 90.1, MCH 31.1, MCHC 34.5, RDW 12.2, Plt Count 598 H, MPV 9.2, Gran % 65.4, Lymph % (Auto) 24.5 , [place] % (Auto) 9.0 H, Eos % (Auto) 0.5 L, Baso % (Auto) 0.6, Gran # 6.85 H, Lymph # 2.6, [place] # 0.9 H, Eos # 0.1, Baso # 0.06 09/29/17 01:40: pO2 53, VBG pH 7.40, VBG pCO2 41.0, VBG HCO3 25.4, VBG Total CO2 26.7, VBG O2 Sat (Calc) 91.9 H, VBG Base Excess 0.5, VBG Potassium 3.5 L, Sodium 135.0, Chloride 101.0, Glucose 83, Lactate 1.0, FiO2 21.0, Venous Blood Potassium 3.5 L I have reviewed the lab results: Yes - RAD Interpretation Radiology Orders: 09/29/17 01:23 CHEST PORTABLE [RAD] Stat 09/29/17 03:02 CHEST W/O CONTRAST [CT] Stat - Medication Orders Current Medication Orders: Discontinued Medications Acetaminophen (Tylenol 325mg Tab) 650 mg PO Q6H PRN PRN Reason: Fever >100.4 F Acetaminophen (Tylenol 325mg Tab) 650 mg PO Q4H PRN PRN Reason: Fever >100.4 F Albuterol/Ipratropium (Duoneb 3 Mg/0.5 Mg (3 Ml) Ud) 3 ml IH [id number] AZALEA Enoxaparin Sodium (Lovenox) 30 mg SC DAILY AZALEA PRN Reason: Protocol Last Admin: 09/29/17 10:06 Dose: 30 mg Subcutaneous Administrations Document 09/29/17 10:06 DSZ (Rec: 09/29/17 10:[address] [id number] Injection Site MAR Injection Site Left Abdomen Charges for Administration # of Subcutaneous Administrations 1 Famotidine (Pepcid) 40 mg PO HS AZALEA Ceftriaxone Sodium (Rocephin 2 Gm Ivpb) 2 gm in 100 mls @ 100 mls/hr IVPB STAT STA PRN Reason: Protocol Stop: 09/29/17 05:57 Last Admin: 09/29/17 05:43 Dose: 100 mls/hr eMAR Start Stop Document 09/29/17 05:43 SS (Rec: 09/29/17 05:44 SS [id number]) Intravenous Solution Start Date 09/29/17 Start Time 05:43 End Date 09/29/17 End time 06:43 Total Infusion Time 60 Azithromycin (Zithromax 500mg In Ns) 500 mg in 250 mls @ 167 mls/hr IVPB STAT STA PRN Reason: Protocol Stop: 09/29/17 06:27 Last Admin: 09/29/17 06:42 Dose: 167 mls/hr eMAR Start Stop Document 09/29/17 06:42 BR (Rec: 09/29/17 06:42 BR [id number]) Intravenous Solution Start Date 09/29/17 Start Time 06:42 End Date 09/29/17 End time 08:12 Total Infusion Time 90 Metronidazole (Flagyl) 500 mg in 100 mls @ 100 mls/hr IVPB STAT STA PRN Reason: Protocol Stop: 09/29/17 05:58 Last Admin: 09/29/17 10:36 Dose: 100 mls/hr eMAR Start Stop Document 09/29/17 10:36 DSZ (Rec: 09/29/17 10:[address] [facility] [id number] Intravenous Solution Start Date 09/29/17 Start Time 10:36 Azithromycin (Zithromax 500mg In Ns) 500 mg in 250 mls @ 167 mls/hr IVPB DAILY AZALEA PRN Reason: Protocol Ceftriaxone Sodium (Rocephin 2 Gm Ivpb) 2 gm in 100 mls @ 100 mls/hr IVPB 2200 AZALEA PRN Reason: Protocol Sodium Chloride (Sodium Chloride 0.9%) 1,000 mls @ 100 mls/hr IV .Q10H AZALEA Stop: 09/30/17 01:59 Azithromycin (Zithromax 500mg In Ns) 500 mg in 250 mls @ 167 mls/hr IVPB DAILY AZALEA PRN Reason: Protocol Piperacillin Sod/Tazobactam Sod (Zosyn 3.375 In Ns 100ml) 100 mls @ 200 mls/hr IVPB Q6 AZALEA PRN Reason: Protocol Stop: 10/08/17 12:01 Last Admin: 09/29/17 17:13 Dose: 200 mls/hr eMAR Start Stop Document 09/29/17 17:13 DSZ (Rec: 09/29/17 17:[address] [facility] [id number] Intravenous Solution Start Date 09/29/17 Start Time 17:13 Ketorolac Tromethamine (Toradol) 30 mg IVP STAT STA Stop: 09/29/17 03:03 Last Admin: 09/29/17 03:26 Dose: 30 mg MAR Pain Assessment Document 09/29/17 03:26 SS (Rec: 09/29/17 03:27 SS [id number]) Pain Reassessment Is this a pain reassessment? No Sleep Is patient sleeping during reassessment? No Presence of Pain Presence of Pain Yes IVP Administration Document 09/29/17 03:26 SS (Rec: 09/29/17 03:27 SS [id number]) Charges for Administration # of IVP Administrations 1 Ketorolac Tromethamine (Toradol) 15 mg IVP Q4H PRN PRN Reason: Pain, moderate (4-7) Ondansetron HCl (Zofran Inj) 4 mg IVP Q4H PRN PRN Reason: Nausea/Vomiting Potassium Chloride (K-Dur 20 Meq Er Tab) 40 meq PO STAT STA Stop: 09/29/17 02:57 Last Admin: 09/29/17 03:12 Dose: 40 meq - Scribe Statement The provider has reviewed the documentation as recorded by the Pascual Tai Provider Scribe Attestation: All medical record entries made by the Pascual were at my direction and personally dictated by me. I have reviewed the chart and agree that the record accurately reflects my personal performance of the history, physical exam, medical decision making, and the department course for this patient. I have also personally directed, reviewed, and agree with the discharge instructions and disposition. Disposition/Present on Arrival - Present on Arrival Any Indicators Present on Arrival: No History of DVT/PE: No History of Uncontrolled Diabetes: No Urinary Catheter: No History of Decub. Ulcer: No History Surgical Site Infection Following: None - Disposition Have Diagnosis and Disposition been Completed?: Yes Diagnosis: Pneumonia Disposition: HOSPITALIZED Disposition Time: 07:00 Condition: STABLE
[2017-09-29 02:15] LABS: BASO # 0.06 K/mm3 (0.0-2.0); BASO % 0.6 % (0.0-3.0); EOS # 0.1 (0.0-0.7); EOS % 0.5 % (1.5-5.0); GRAN # 6.85 (1.4-6.5); GRAN % 65.4 % (50.0-68.0); HEMOGLOBIN 14.7 g/dL (12.0-16.0); LYMPH # 2.6 (1.2-3.4); LYMPH % 24.5 % (22.0-35.0); MEAN CELL VOLUME 90.1 fl (80.0-105.0); MEAN CORPUSCULAR HEMOGLOBIN 31.1 pg (25.0-35.0); MEAN CORPUSCULAR HGB CONC 34.5 g/dl (31.0-37.0); MEAN PLATELET VOLUME 9.2 fl (7.0-11.0); MONO # 0.9 (0.1-0.6); RBC 4.73 10^6/uL (3.5-6.1); RED CELL DISTRIBUTION WIDTH 12.2 % (11.5-14.5); WHITE BLOOD COUNT 10.5 10^3/ul (4.5-11.0)
[2017-09-29 02:23] LABS: INR 1.39 (0.93-1.08); PARTIAL THROMBOPLASTIN TIME 32.8 Seconds (25.1-36.5); PROTHROMBIN TIME 15.3 SECONDS (9.4-12.5)
[2017-09-29 02:34] LABS: URINE BILIRUBIN NEGATIVE (NEGATIVE); URINE BLOOD MODERATE (NEGATIVE); URINE GLUCOSE (UA) NEGATIVE (NEGATIVE); URINE LEUKOCYTE ESTERASE NEGATIVE Leu/uL (NEGATIVE); URINE NITRATE NEGATIVE (NEGATIVE); URINE PROTEIN NEGATIVE mg/dL (<30 mg/dL); URINE UROBILINOGEN 0.2 E.U./dL (<1 E.U./dL)
[2017-09-29 02:36] LABS: URINE APPEARANCE SL CLOUDY (CLEAR); URINE COLOR YELLOW (YELLOW)
[2017-09-29 02:38] LABS: VENOUS BLOOD GAS BASE EXCESS 0.5 mmol/L (0.0-2.0); VENOUS BLOOD GAS PO2 53 mm/Hg (30-55)
[2017-09-29 02:42] LABS: ALB/GLOB RATIO 1.1 (1.1-1.8); ALBUMIN 4.1 g/dL (3.0-4.8); ALT/SGPT 27 U/L (7-56); AST/SGOT 35 U/L (14-36); BLOOD UREA NITROGEN 9 mg/dL (7-21); GFR AFRICAN-AMERICAN > 60; GFR NON-AFRICAN AMERICAN > 60
[2017-09-29] MEDS ORDERED: Potassium Chloride 20 mEq ER Tab PO STA (02:56)
[2017-09-29 03:21] LABS: URINE BACTERIA FEW (NEG); URINE WBC 0 - 2 /hpf (0-6)
--- NOTE | 2017-09-29 04:57 | CT ---
EXAM: CT Chest Without Intravenous Contrast CLINICAL HISTORY: 31 years old, female; Signs and symptoms; Cough; Symptoms not specified; Additional info: Cough h/o of pneumonia TECHNIQUE: Axial computed tomography images of the chest without intravenous contrast. All CT scans at this facility use one or more dose reduction techniques, viz.: automated exposure control; ma/kV adjustment per patient size (including targeted exams where dose is matched to indication; i.e. head); or iterative reconstruction technique. 542 images are submitted. Coronal and sagittal reformatted images were created and reviewed. COMPARISON: No relevant prior studies available. FINDINGS: Artifacts: Limited due to motion and misregistration artifacts. Lungs: There is a reticular-nodular infiltrate in the superior segment of left lower lobe and in the left posterior perihilar region seen on image 27 series 2 through image 34 series 2 representing acute pneumonia or aspiration pneumonia. Minimal infiltration in the right lower lobe and subsegmental consolidation in the lateral right middle lobe. Multifocal pneumonia or atelectasis is not excluded. Pleural space: Unremarkable. No pneumothorax. No significant effusion. Heart: Unremarkable. No cardiomegaly. No significant pericardial effusion. Mediastinum: Possible small hiatal hernia. Bones/joints: Unremarkable. No acute fracture. No dislocation. Soft tissues: Unremarkable. Vasculature: Unremarkable. No thoracic aortic aneurysm. Lymph nodes: Subcentimeter axillary lymph nodes. Stomach and bowel: There is hyperdensity within the stomach could represent ingested contents. Normal adrenal glands. IMPRESSION: 1. There is a reticular-nodular infiltrate in the superior segment of left lower lobe and in the left posterior perihilar region seen on image 27 series 2 through image 34 series 2 representing acute pneumonia or aspiration pneumonia. 2. Minimal infiltration in the right lower lobe and subsegmental consolidation in the lateral right middle lobe. Multifocal pneumonia or atelectasis is not excluded. Correlation with internal medicine evaluation and further workup or followup as recommended by patient's clinical data.
[2017-09-29] MEDS ORDERED: Azithromycin 500MG/NS 250ml 500 MG/250 ML BAG IVPB STA (04:58)
[2017-09-29] MEDS ORDERED: cefTRIAXone 2 GM IN NS 2 GM/100 ML BAG IVPB STA (04:58)
[2017-09-29] MEDS ORDERED: metroNIDAZOLE IV 500 mg/100 ml 500 MG/100 ML BAG IVPB STA (04:59)
[2017-09-29] MEDS ORDERED: Sodium Chloride 0.9% 1,000 ML IV SCH (06:00)
--- NOTE | 2017-09-29 06:01 | CP.PCM.HP ---
<Fannie Ruff - Last Filed: 09/29/17 07:07> History of Present Illness - History of Present Illness History of Present Illness: 31 year female with no significant past medical history who presents with sore throat, body aches, decreased appetite, and lethargy. On 09/24/17 she presented to the ED for fever, chills, vomiting and was found to have leukocytosis along with chest X-raydemonstrating an interstitial process. At the time, the patient refused admission and was sent home on Levaquin and an antiemetic. Since that time the patient's fever and chills had resolved, but now she presents with body aches, failure to thrive, fatigue, lethargy, malaise, and sore throat. PMD: Dr. Gibbs (per chart review) PSH: Denies PMH: Denies Allergies: Tree, fruit, and lactose intolerant Social: has two kids, 10 pack year history of smoking, drinks occasionally. Present on Admission - Present on Admission Any Indicators Present on Admission: No Review of Systems - Constitutional Constitutional: As Per HPI Past Patient History - Infectious Disease Hx of Infectious Diseases: None - Past Social History Smoking Status: Light Smoker < 10 Cigarettes Daily - CARDIAC Hx Cardiac Disorders: No - PULMONARY Hx Respiratory Disorders: No - NEUROLOGICAL Hx Neurological Disorder: No - HEENT Hx HEENT Problems: No - RENAL Hx Chronic Kidney Disease: Yes Hx Kidney Stones: Yes - ENDOCRINE/METABOLIC Hx Endocrine Disorders: No - HEMATOLOGICAL/ONCOLOGICAL Hx Blood Disorders: No - INTEGUMENTARY Hx Dermatological Problems: No - MUSCULOSKELETAL/RHEUMATOLOGICAL Hx Musculoskeletal Disorders: No - GASTROINTESTINAL Hx Gastrointestinal Disorders: No - GENITOURINARY/GYNECOLOGICAL Hx Genitourinary Disorders: Yes Hx Urinary Tract Infection: Yes Other/Comment: Ovarian cyst. 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 - PSYCHIATRIC Hx Psychophysiologic Disorder: No Hx Substance Use: No - SURGICAL HISTORY Hx Surgeries: No - ANESTHESIA Hx Anesthesia: No Meds Home Medications: Home Medication List Medication Instructions Recorded Confirmed Type levoFLOXacin [Levaquin] 500 mg PO DAILY #4 tab 09/29/17 Rx Allergies/Adverse Reactions: Allergies Allergy/AdvReac Type Severity Reaction Status Date / Time tree nut Allergy RASH Verified 09/24/17 19:19 fruit Allergy RASH Uncoded 09/24/17 19:19 Physical Exam - Constitutional Appears: Non-toxic, No Acute Distress Additional comments: tired, fatigued - Head Exam Head Exam: ATRAUMATIC, NORMOCEPHALIC - Eye Exam Eye Exam: EOMI, Normal appearance Pupil Exam: PERRL - ENT Exam Additional comments: posterior pharynx is erythematous, right upper lip demonstrates a cold sore, and right internal nare has an impetigo-appearing lesion Patient reportts pain with EOMovemnt in eyes. - Neck Exam Neck exam: Negative for: Tenderness Additional comments: right sternoclavicular lesion demostrates papular-uritcarial rash - Respiratory Exam Additional comments: left sided rub/rhonchi./abnormal in mid lung field - Cardiovascular Exam Cardiovascular Exam: RRR, +S1, +S2 - GI/Abdominal Exam GI & Abdominal Exam: Normal Bowel Sounds, Soft - Extremities Exam Extremities exam: Negative for: calf tenderness - Back Exam Back exam: NORMAL INSPECTION. absent: CVA tenderness (L), CVA tenderness (R) - Neurological Exam Neurological exam: CN II-XII Intact, Oriented x3 - Psychiatric Exam Psychiatric exam: Normal Affect, Normal Mood - Skin Skin Exam: Dry, Intact, Normal Color, Warm Results - Vital Signs Recent Vital Signs: Last Vital Signs Temp 98.4 F 09/29/17 01:19 Pulse 60 09/29/17 01:19 Resp 20 09/29/17 01:19 BP 112/77 09/29/17 01:19 Pulse Ox 100 09/29/17 01:19 - Labs Result Diagrams: 09/29/17 01:40 09/29/17 01:40 Assessment & Plan - Assessment and Plan (Free Text) Assessment: 31 year old female presenting with increased lethargy, malaise, sore thorat after failing outpatient therapy for pneumonia. Plan: 1) Pneumonia with concurrent URI - CT chest reads as there is a reticular-nodular infiltrate in the superior segment of left lower lobe and in the left posterior perihilar region seen on image 27 series 2 through image 34 series 2 representing acute pneumonia or aspiration pneumonia. Minimal infiltration in the right lower lobe and subsegmental consolidation in the lateral right middle lobe. Multifocal pneumonia or atelectasis is not excluded. Correlation with internal medicine evaluation and further workup or followup as recommended by patient's clinical data - Follow up: Urine legionella and Strep pneumo antigen, ASO titer, blood, sputum cultures, rapid strep test and Mycoplasma IgM and IgG - ID, Dr. Bull, consulted. - Duonebs q4h AZALEA - Soft diet - Tylenol or IVP Toradol for pain - Zofran 4 mg q4h PRN for nausea - 100 ml/hr of NS - Chest X-ray interprtation pending 2) DVT/GI prophylaxis - Lovenox 30 SC - Famotidine 40 mg HS - Date & Time Date: 09/29/17 Time: 07:05 <Aguilar Espinosa - Last Filed: 10/03/17 06:25> Results - Vital Signs Recent Vital Signs: Last Vital Signs Temp 98.9 F 09/29/17 16:33 Pulse 64 09/29/17 16:33 Resp 16 09/29/17 16:33 BP 106/66 09/29/17 16:33 Pulse Ox 98 09/29/17 16:33 - Labs Result Diagrams: 09/29/17 01:40 09/29/17 08:00 Labs: Laboratory Results - last 24 hr 09/29/17 06:15 Mycoplasma pneumon IgG >5.00 H Mycoplasma pneumon IgM 6087 H
[2017-09-29] MEDS ORDERED: Albuterol-Ipratrop 3 mg / 0.5 (3 ml) UD IH SCH (07:30)
[2017-09-29 08:35] LABS: BLOOD UREA NITROGEN 9 mg/dL (7-21); CALCIUM 9.2 mg/dL (8.4-10.5); GFR AFRICAN-AMERICAN > 60; GFR NON-AFRICAN AMERICAN > 60
[2017-09-29] MEDS ORDERED: Enoxaparin 30 mg Syringe SC SCH (10:00)
[2017-09-29] MEDS ORDERED: cefTRIAXone 2 GM IN NS 2 GM/100 ML BAG IVPB SCH ×2 (10:00→22:00)
--- NOTE | 2017-09-29 11:00 | RAD ---
HISTORY: Cough portable study 02:50 COMPARISON: 09/24/2017 FINDINGS: LUNGS: No active pulmonary disease. PLEURA: No significant pleural effusion identified, no pneumothorax apparent. CARDIOVASCULAR: Normal. OSSEOUS STRUCTURES: No significant abnormalities. VISUALIZED UPPER ABDOMEN: Normal. OTHER FINDINGS: None. IMPRESSION: No active disease. No significant interval change compared to the prior examination(s).
[2017-09-29] MEDS: Piperacillin/Tazobact 3.375 gm 100 ML IVPB SCH ×2 (11:41→17:13)
[2017-09-29 12:23] VITALS: BMI 24.0
--- NOTE | 2017-09-29 16:31 | CP.PCM.DIS ---
<Odalys James - Last Filed: 09/29/17 16:27> Provider - Provider Date of Admission: 09/29/17 05:02 Attending physician: Robert Castillo MD Primary care physician: Gwen Gibbs MD Consults: ARELIS Bull Time Spent in preparation of Discharge (in minutes): 35 Diagnosis - Discharge Diagnosis (1) CAP (community acquired pneumonia) Status: Acute (2) Viral pneumonia Status: Acute Hospital Course - Lab Results Lab Results: Most Recent Lab Values WBC 10.5 10^3/ul (4.5-11.0) D 09/29/17 01:40 RBC 4.73 10^6/uL (3.5-6.1) 09/29/17 01:40 Hgb 14.7 g/dL (12.0-16.0) 09/29/17 01:40 Hct 42.6 % (36.0-48.0) 09/29/17 01:40 MCV 90.1 fl (80.0-105.0) 09/29/17 01:40 MCH 31.1 pg (25.0-35.0) 09/29/17 01:40 MCHC 34.5 g/dl (31.0-37.0) 09/29/17 01:40 RDW 12.2 % (11.5-14.5) 09/29/17 01:40 Plt Count 598 10^3/uL (120.0-450.0) H 09/29/17 01:40 MPV 9.2 fl (7.0-11.0) 09/29/17 01:40 Gran % 65.4 % (50.0-68.0) 09/29/17 01:40 Lymph % (Auto) 24.5 % (22.0-35.0) 09/29/17 01:40 Bailey % (Auto) 9.0 % (1.0-6.0) H 09/29/17 01:40 Eos % (Auto) 0.5 % (1.5-5.0) L 09/29/17 01:40 Baso % (Auto) 0.6 % (0.0-3.0) 09/29/17 01:40 Gran # 6.85 (1.4-6.5) H 09/29/17 01:40 Lymph # 2.6 (1.2-3.4) 09/29/17 01:40 Bailey # 0.9 (0.1-0.6) H 09/29/17 01:40 Eos # 0.1 (0.0-0.7) 09/29/17 01:40 Baso # 0.06 K/mm3 (0.0-2.0) 09/29/17 01:40 PT 15.3 SECONDS (9.4-12.5) H 09/29/17 01:40 INR 1.39 (0.93-1.08) H 09/29/17 01:40 APTT 32.8 Seconds (25.1-36.5) 09/29/17 01:40 pO2 53 mm/Hg (30-55) 09/29/17 01:40 VBG pH 7.40 (7.32-7.43) 09/29/17 01:40 VBG pCO2 41.0 (40-60) 09/29/17 01:40 VBG HCO3 25.4 mmol/l (21-28) 09/29/17 01:40 VBG Total CO2 26.7 mmol.L (22-28) 09/29/17 01:40 VBG O2 Sat (Calc) 91.9 % (40-65) H 09/29/17 01:40 VBG Base Excess 0.5 mmol/L (0.0-2.0) 09/29/17 01:40 VBG Potassium 3.5 mmol/L (3.6-5.2) L 09/29/17 01:40 Sodium 135.0 mmol/L (132-148) 09/29/17 01:40 Chloride 101.0 mmol/L (98-107) 09/29/17 01:40 Glucose 83 mg/dl (65-105) 09/29/17 01:40 Lactate 1.0 mmol/L (0.7-2.1) 09/29/17 01:40 FiO2 21.0 % 09/29/17 01:40 Sodium 138 mmol/L (132-148) 09/29/17 08:00 Potassium 4.3 mmol/L (3.6-5.0) 09/29/17 08:00 Chloride 104 mmol/L (98-107) 09/29/17 08:00 Carbon Dioxide 22 mmol/L (21-33) 09/29/17 08:00 Anion Gap 17 (10-20) 09/29/17 08:00 BUN 9 mg/dL (7-21) 09/29/17 08:00 Creatinine 0.5 mg/dl (0.7-1.2) L 09/29/17 08:00 Est GFR ( Amer) > 60 09/29/17 08:00 Est GFR (Non-Af Amer) > 60 09/29/17 08:00 Random Glucose 82 mg/dL (70-110) 09/29/17 08:00 Calcium 9.2 mg/dL (8.4-10.5) 09/29/17 08:00 Total Bilirubin 0.5 mg/dL (0.2-1.3) 09/29/17 01:40 AST 35 U/L (14-36) 09/29/17 01:40 ALT 27 U/L (7-56) 09/29/17 01:40 Alkaline Phosphatase 57 U/L (38-126) 09/29/17 01:40 Total Protein 7.9 g/dL (5.8-8.3) 09/29/17 01:40 Albumin 4.1 g/dL (3.0-4.8) 09/29/17 01:40 Globulin 3.8 gm/dL 09/29/17 01:40 Albumin/Globulin Ratio 1.1 (1.1-1.8) 09/29/17 01:40 Beta HCG, Quant < 2.39 mIU/mL (0-6.15) 09/29/17 01:40 Venous Blood Potassium 3.5 mmol/L (3.6-5.2) L 09/29/17 01:40 Urine Color Yellow (YELLOW) 09/29/17 02:23 Urine Appearance Sl cloudy (CLEAR) 09/29/17 02:23 Urine pH 7.0 (4.7-8.0) 09/29/17 02:23 Ur Specific [place] <= 1.005 (1.005-1.035) 09/29/17 02:23 Urine Protein Negative mg/dL (<30 mg/dL) 09/29/17 02:23 Urine Glucose (UA) Negative mg/dL (NEGATIVE) 09/29/17 02:23 Urine Ketones Negative mg/dL (NEGATIVE) 09/29/17 02:23 Urine Blood Moderate (NEGATIVE) H 09/29/17 02:23 Urine Nitrate Negative (NEGATIVE) 09/29/17 02:23 Urine Bilirubin Negative (NEGATIVE) 09/29/17 02:23 Urine Urobilinogen 0.2 E.U./dL (<1 E.U./dL) 09/29/17 02:23 Ur Leukocyte Esterase Negative Meghan/uL (NEGATIVE) 09/29/17 02:23 Urine RBC 1 - 3 /hpf (0-2) 09/29/17 02:23 Urine WBC 0 - 2 /hpf (0-6) 09/29/17 02:23 Ur Epithelial Cells 3 - 4 /hpf (0-5) 09/29/17 02:23 Urine Bacteria Few (NEG) 09/29/17 02:23 Urine HCG, Qual Negative (NEGATIVE) 09/29/17 02:23 Influenza Typ A,B (EIA) Negative for flu a/b (NEGATIVE) 09/29/17 03:15 Grp A Beta Strep Ag Negative (NEGATIVE) 09/29/17 06:03 - Hospital Course Hospital Course: 31 year female with no significant past medical history who presents with sore throat, body aches, decreased appetite, and lethargy. On 09/24/17 she presented to the ED for fever, chills, vomiting and was found to have leukocytosis along with chest X-raydemonstrating an interstitial process. At the time, the patient refused admission and was sent home on Levaquin and an antiemetic. Since that time the patient's fever and chills had resolved, but now she presents with body aches, failure to thrive, fatigue, lethargy, malaise, and sore throat. Patient completed 4 days of Levaquin at home. Afebrile, no leukocytosis, influenza neg. Patient is at her baseline mental status, breathing well on RA, BP well maintained. CT chest showed similar infiltrates, as seen o previous CXR on 09/24/17. With improving pneumonia symptoms, pt discharged home and told to complete course of Levaquin. Patient agrees to the plan and will follow up with PMD. Discussed with Dr Anna James, PGY1 Discharge Exam - Head Exam Head Exam: ATRAUMATIC, NORMOCEPHALIC - Additional Findings Additional findings: - Constitutional Appears: Non-toxic, No Acute Distress Additional comments: - Eye Exam Eye Exam: EOMI, Normal appearance Pupil Exam: PERRL - ENT Exam Additional comments: posterior pharynx is mildly erythematous - Neck Exam Neck exam: Negative for: Tenderness Additional comments: - Respiratory Exam Additional comments: Decreased breath sounds b/l. No coarse breath sounds noted. - Cardiovascular Exam Cardiovascular Exam: RRR, +S1, +S2 - GI/Abdominal Exam GI & Abdominal Exam: Normal Bowel Sounds, Soft - Extremities Exam Extremities exam: Negative for: calf tenderness - Back Exam Back exam: NORMAL INSPECTION. absent: CVA tenderness (L), CVA tenderness (R) - Neurological Exam Neurological exam: CN II-XII Intact, Oriented x3 - Psychiatric Exam Psychiatric exam: Normal Affect, Normal Mood - Skin Skin Exam: Dry, Intact, Normal Color, Warm Discharge Plan - Discharge Medications Prescriptions: levoFLOXacin [Levaquin] 500 mg PO DAILY #4 tab - Follow Up Plan Condition: GOOD Disposition: HOME/ ROUTINE Patient education suggested?: Yes Instructions: Viral Pneumonia (DC), Community Acquired Pneumonia (DC), How To Wash Your Hands (DC) Additional Instructions: - You have been adequately treated for your pneumonia with Levaquin for 4 days, your symptoms (like your cough and fevers) are improving. Please continue with Levaquin for 4 more days. - Follow up with your PMD Dr Gibbs in 1 week. - Please return to the hospital if any concerns. Referrals: Gwne Gibbs MD [Primary Care Provider] - <Robert Castillo - Last Filed: 09/29/17 16:45> Provider - Provider Date of Admission: 09/29/17 05:02 Attending physician: Robert Castillo MD Primary care physician: Gwen Gibbs MD Hospital Course - Lab Results Lab Results: Most Recent Lab Values WBC 10.5 10^3/ul (4.5-11.0) D 09/29/17 01:40 RBC 4.73 10^6/uL (3.5-6.1) 09/29/17 01:40 Hgb 14.7 g/dL (12.0-16.0) 09/29/17 01:40 Hct 42.6 % (36.0-48.0) 09/29/17 01:40 MCV 90.1 fl (80.0-105.0) 09/29/17 01:40 MCH 31.1 pg (25.0-35.0) 09/29/17 01:40 MCHC 34.5 g/dl (31.0-37.0) 09/29/17 01:40 RDW 12.2 % (11.5-14.5) 09/29/17 01:40 Plt Count 598 10^3/uL (120.0-450.0) H 09/29/17 01:40 MPV 9.2 fl (7.0-11.0) 09/29/17 01:40 Gran % 65.4 % (50.0-68.0) 09/29/17 01:40 Lymph % (Auto) 24.5 % (22.0-35.0) 09/29/17 01:40 Bailey % (Auto) 9.0 % (1.0-6.0) H 09/29/17 01:40 Eos % (Auto) 0.5 % (1.5-5.0) L 09/29/17 01:40 Baso % (Auto) 0.6 % (0.0-3.0) 09/29/17 01:40 Gran # 6.85 (1.4-6.5) H 09/29/17 01:40 Lymph # 2.6 (1.2-3.4) 09/29/17 01:40 Bailey # 0.9 (0.1-0.6) H 09/29/17 01:40 Eos # 0.1 (0.0-0.7) 09/29/17 01:40 Baso # 0.06 K/mm3 (0.0-2.0) 09/29/17 01:40 PT 15.3 SECONDS (9.4-12.5) H 09/29/17 01:40 INR 1.39 (0.93-1.08) H 09/29/17 01:40 APTT 32.8 Seconds (25.1-36.5) 09/29/17 01:40 pO2 53 mm/Hg (30-55) 09/29/17 01:40 VBG pH 7.40 (7.32-7.43) 09/29/17 01:40 VBG pCO2 41.0 (40-60) 09/29/17 01:40 VBG HCO3 25.4 mmol/l (21-28) 09/29/17 01:40 VBG Total CO2 26.7 mmol.L (22-28) 09/29/17 01:40 VBG O2 Sat (Calc) 91.9 % (40-65) H 09/29/17 01:40 VBG Base Excess 0.5 mmol/L (0.0-2.0) 09/29/17 01:40 VBG Potassium 3.5 mmol/L (3.6-5.2) L 09/29/17 01:40 Sodium 135.0 mmol/L (132-148) 09/29/17 01:40 Chloride 101.0 mmol/L (98-107) 09/29/17 01:40 Glucose 83 mg/dl (65-105) 09/29/17 01:40 Lactate 1.0 mmol/L (0.7-2.1) 09/29/17 01:40 FiO2 21.0 % 09/29/17 01:40 Sodium 138 mmol/L (132-148) 09/29/17 08:00 Potassium 4.3 mmol/L (3.6-5.0) 09/29/17 08:00 Chloride 104 mmol/L (98-107) 09/29/17 08:00 Carbon Dioxide 22 mmol/L (21-33) 09/29/17 08:00 Anion Gap 17 (10-20) 09/29/17 08:00 BUN 9 mg/dL (7-21) 09/29/17 08:00 Creatinine 0.5 mg/dl (0.7-1.2) L 09/29/17 08:00 Est GFR ( Amer) > 60 09/29/17 08:00 Est GFR (Non-Af Amer) > 60 09/29/17 08:00 Random Glucose 82 mg/dL (70-110) 09/29/17 08:00 Calcium 9.2 mg/dL (8.4-10.5) 09/29/17 08:00 Total Bilirubin 0.5 mg/dL (0.2-1.3) 09/29/17 01:40 AST 35 U/L (14-36) 09/29/17 01:40 ALT 27 U/L (7-56) 09/29/17 01:40 Alkaline Phosphatase 57 U/L (38-126) 09/29/17 01:40 Total Protein 7.9 g/dL (5.8-8.3) 09/29/17 01:40 Albumin 4.1 g/dL (3.0-4.8) 09/29/17 01:40 Globulin 3.8 gm/dL 09/29/17 01:40 Albumin/Globulin Ratio 1.1 (1.1-1.8) 09/29/17 01:40 Procalcitonin < 0.05 NG/ML (0.19-0.49) L 09/29/17 11:22 Beta HCG, Quant < 2.39 mIU/mL (0-6.15) 09/29/17 01:40 Venous Blood Potassium 3.5 mmol/L (3.6-5.2) L 09/29/17 01:40 Urine Color Yellow (YELLOW) 09/29/17 02:23 Urine Appearance Sl cloudy (CLEAR) 09/29/17 02:23 Urine pH 7.0 (4.7-8.0) 09/29/17 02:23 Ur Specific [place] <= 1.005 (1.005-1.035) 09/29/17 02:23 Urine Protein Negative mg/dL (<30 mg/dL) 09/29/17 02:23 Urine Glucose (UA) Negative mg/dL (NEGATIVE) 09/29/17 02:23 Urine Ketones Negative mg/dL (NEGATIVE) 09/29/17 02:23 Urine Blood Moderate (NEGATIVE) H 09/29/17 02:23 Urine Nitrate Negative (NEGATIVE) 09/29/17 02:23 Urine Bilirubin Negative (NEGATIVE) 09/29/17 02:23 Urine Urobilinogen 0.2 E.U./dL (<1 E.U./dL) 09/29/17 02:23 Ur Leukocyte Esterase Negative Meghan/uL (NEGATIVE) 09/29/17 02:23 Urine RBC 1 - 3 /hpf (0-2) 09/29/17 02:23 Urine WBC 0 - 2 /hpf (0-6) 09/29/17 02:23 Ur Epithelial Cells 3 - 4 /hpf (0-5) 09/29/17 02:23 Urine Bacteria Few (NEG) 09/29/17 02:23 Urine HCG, Qual Negative (NEGATIVE) 09/29/17 02:23 Influenza Typ A,B (EIA) Negative for flu a/b (NEGATIVE) 09/29/17 03:15 Grp A Beta Strep Ag Negative (NEGATIVE) 09/29/17 06:03 Attending/Attestation - Attestation I have personally seen and examined this patient.: Yes I have fully participated in the care of the patient.: Yes I have reviewed all pertinent clinical information, including history, physical exam and plan: Yes Notes (Text): 09/29/17 16:39 Patient was seen and examined with medical device. 31 yrs old female with no PMH was recently treated for CAP was admitted with cough, sore throat and weakness. Patient is afebrile, She is not tachypnic.She is on room air.There is no hypotension.There is no confusion. Patient is ambulatory.Leukocytosis has improved.All these are suggestive of improving infection. Patient will be discharged homer and will follow up with PCP. Management plan was discussed in detail with the patient. Education was provided.
[2017-09-29 16:47] VITALS: BP 106/66; PULSE 64; RESP 16; TEMP 98.9; O2SAT 98
[2017-09-30] MEDS ORDERED: cefTRIAXone 2 GM IN NS 2 GM/100 ML BAG IVPB SCH (10:00)
[2017-09-30] MEDS ORDERED: Azithromycin 500MG/NS 250ml 500 MG/250 ML BAG IVPB SCH ×2 (10:00)
== END 2017-09-29 19:12 | disposition home or self-care (01) ==
LOC: ED 01:04 → INTOOBSV 05:02 → ERH 05:02 → 5RNO 06:34
PROVIDERS: ADMIT Internal Medicine; ATTEND Internal Medicine
DX: J69.0 Pneumonitis due to inhalation of food and vomit (principal); N18.9 Chronic kidney disease, unspecified; R62.7 Adult failure to thrive; Z87.440 Personal history of urinary (tract) infections; Z87.442 Personal history of urinary calculi; F17.210 Nicotine dependence, cigarettes, uncomplicated; Z91.018 Allergy to other foods; R40.2412 Glasgow coma scale score 13-15, at arrival to emergency department; E73.9 Lactose intolerance, unspecified; J06.9 Acute upper respiratory infection, unspecified; Z87.891 Personal history of nicotine dependence
CPT/HCPCS: 71010; 71250; 80053; 81001; 82803; 84145; 84702; 84703; 85025; 85610; 85730; 86060; 86308; 86738; 87040; 87070; 87389; 87430; 87804; 87899; 96365; 96367; 96372; 96375; 96376; 99285; G0378; J0456; J0696; J1650; J1885; J2543

== ENCOUNTER 2018-12-24 11:14 | Outpatient (CLI) | payer MEDICAID | END 2018-12-24 11:15 | disposition home or self-care (01) | LOC: RAD 11:14 ==